=== PATIENT | female | born 1935 | race Caucasian/White ===

== ENCOUNTER → 2017-03-05 | Outpatient (CLI) | payer MEDICARE ==
--- NOTE | 2017-03-05 14:45 | PCVCIMAG ---
APPROVED REPORT Study performed: 03/05/2017 13:22:27 EXAM: Comprehensive 2D, Doppler, and color-flow Echocardiogram Patient Location: Echo lab Status: routine BSA: 1.90 HR: 67 bpmBP: 128/64 mmHg Rhythm: NSR Other Information Study Quality: Adequate Indications Atrial Fibrillation Hypertension/HDD Diastolic dysfunction,Dyslipidemai 2D Dimensions LVEF(%): 66.25 (>50%) IVSd: 9.10 (7-11mm)LVOT Diam: 19.76 (18-24mm) LVDd: 35.38 mm PWd: 7.90 (7-11mm)Ascending Ao: 25.89 (22-36mm) LVDs: 22.75 (25-40mm) Left Atrium: 30.82 (27-40mm) Aortic Root: 25.81 mm LV Single Plane 4CH: 65.05 % LV Single Plane 2CH: 72.00 %Da Silva's LVEF: 68.53 % Biplane EF: 69.4 % Volumes Left Atrial Volume (Systole) Single Plane 4CH: 42.91 mLSingle Plane 2CH: 59.91 mL Biplane LA Volume: 52.00 mLLA ESV Index: 28.00 mL/m2 Aortic Valve AoV Peak Carter.: 1.77 m/s AO Peak Gr.: 15.73 mmHgLVOT Max P.56 mmHg AO Mean Gr.: 8.50 mmHgLVOT Mean P.51 mmHg AO V2 Mean: 1.41 m/sLVOT Max V: 1.09 m/s AO V2 VTI: 39.13 cmLVOT Mean V: 0.73 m/s CAPRI (VTI): 1.65 [id number] V1 VTI: 21.06 cm CAPRI Vmax: 1.89 cm2 SV (LVOT): 64.51 mL Mitral Valve E/A Ratio: 0.7 MV Decel. Time: 164.34 ms MV E Max Carter.: 0.72 m/s MV A Carter.: 1.07 m/s IVRT: 65.74 ms Pulmonary Valve PV Peak Carter.: 0.92 m/sPV Peak Gr.: 3.40 mmHg Tricuspid Valve TR Peak Carter.: 2.57 m/s TR Peak Gr.: 26.46 mmHg TV Vmax: 0.51 m/sPA Pressure: 34.00 mmHg Left Ventricle The left ventricle is normal size. There is normal LV segmental wall motion. There is normal left ventricular wall thickness. Left ventricular systolic function is normal. The left ventricular ejection fraction is within the normal range. LVEF is 65-70%. Grade I - abnormal relaxation pattern. Right Ventricle The right ventricle is normal size. The right ventricular systolic function is normal. Atria The left atrium size is normal. Right atrium is mildly dilated. Aortic Valve Aortic valve is trileaflet. Aortic valve leaflets are sclerotic with mildly decreased opening. No aortic regurgitation is present. Minimally stenotic aortic valve leaflets. Highest mean aortic valve gradient is 8.3 Peak aortic valve gradient is 14mmHg.mmHg. Mitral Valve Mitral valve leaflets open well. The anterior mitral valve leaflet has mild sclerotic changes . There is no mitral valve regurgitation noted. No evidence of mitral valve stenosis. Tricuspid Valve The tricuspid valve is normal in structure. Moderate tricuspid regurgitation with a PA pressure of 34mmHg.. Pulmonic Valve The pulmonary valve is normal in structure. There is no pulmonic valvular regurgitation. Great Vessels The aortic root is normal in size. The ascending aorta is normal in size. IVC is normal in size and collapses with >50% inspiration Pericardium There is no pericardial effusion. There is no pleural effusion. <Conclusion> Left ventricular systolic function is normal. The left ventricular ejection fraction is within the normal range. LVEF is 65-70%. Grade I - abnormal relaxation pattern. The right ventricle is normal size. The left atrium size is normal. Aortic valve is trileaflet. Aortic valve leaflets are sclerotic with mildly decreased opening. Minimally stenotic aortic valve leaflets. Highest mean aortic valve gradient is 8.3 Peak aortic valve gradient is 14mmHg.mmHg. Mitral valve leaflets open well. The anterior mitral valve leaflet has mild sclerotic changes . There is no mitral valve regurgitation noted. There is no mitral valve regurgitation noted. Moderate tricuspid regurgitation with a PA pressure of 34mmHg.. There is no pericardial effusion.
--- NOTE | 2017-03-05 17:53 | PCVCIMAG ---
APPROVED REPORT Indications Bruit Stenosis Doppler Spectral Velocity Analysis PSV / EDVPSV / EDV ECA (R) 149 / 7 cm/sECA (L) 90 / 16 cm/s dICA (R) 41 / 13 cm/sdICA (L) 53 / 13 cm/s Gregg (R) 58 / 14 cm/smICA (L) 66 / 18 cm/s pICA (R) 211 / 32 cm/spICA (L) 92 / 17 cm/s Bulb (R) 70 / 12 cm/sBulb (L) 72 / 14 cm/s dCCA (R) 58 / 12 cm/sdCCA (L) 75 / 14 cm/s mCCA (R) 61 / 14 cm/smCCA (L) 90 / 17 cm/s Vert (R) 40 / 12 cm/sVert (L) 50 / 10 cm/s ICA/CCA 3.64 ICA/CCA 1.23 Findings The right carotid bulb has moderately severe calcified plaque. The right proximal internal carotid artery shows 60-70% stenosis. The right common carotid artery shows no significant stenosis. The right external carotid artery shows <50% stenosis. The left carotid bulb has moderate calcified plaque. The left proximal internal carotid artery shows <40% stenosis. The left common carotid artery shows no significant stenosis. The left external carotid artery shows no significant stenosis. Conclusion 1. Right internal carotid artery stenosis (60-70%) 2. Left internal carotid artery stenosis (<40%) 3. Antegrade vertebral flow
== END | disposition home or self-care (01) ==
LOC: PCVCIMAG 13:08
PROVIDERS: ATTEND Internal Medicine Cardiovascular Disease
DX: I48.91 Unspecified atrial fibrillation (principal); I65.23 Occlusion and stenosis of bilateral carotid arteries; I10 Essential (primary) hypertension; E78.00 Pure hypercholesterolemia, unspecified; M19.90 Unspecified osteoarthritis, unspecified site; I07.1 Rheumatic tricuspid insufficiency; I11.9 Hypertensive heart disease without heart failure; I77.89 Other specified disorders of arteries and arterioles; Z96.652 Presence of left artificial knee joint; Z88.0 Allergy status to penicillin; Z79.899 Other long term (current) drug therapy
CPT/HCPCS: 80061; 93005; 93306; 93880; G0463

== ENCOUNTER → 2017-11-04 | Outpatient (CLI) | payer MEDICARE | END | disposition home or self-care (01) | LOC: PCVCIMAG 09:34 | DX: I65.23 Occlusion and stenosis of bilateral carotid arteries (principal); I48.0 Paroxysmal atrial fibrillation; I10 Essential (primary) hypertension; M35.3 Polymyalgia rheumatica; E78.00 Pure hypercholesterolemia, unspecified; I08.2 Rheumatic disorders of both aortic and tricuspid valves; D68.59 Other primary thrombophilia; I77.9 Disorder of arteries and arterioles, unspecified; Z79.899 Other long term (current) drug therapy; Z88.0 Allergy status to penicillin | CPT/HCPCS: 80061; 93005; 93880; G0463 ==

== ENCOUNTER → 2018-05-18 | Outpatient (CLI) | payer MEDICARE | END | disposition home or self-care (01) | LOC: PCVCCLINIC 13:35 | PROVIDERS: ATTEND Internal Medicine Cardiovascular Disease | DX: I48.0 Paroxysmal atrial fibrillation (principal); I10 Essential (primary) hypertension; I07.1 Rheumatic tricuspid insufficiency; I65.23 Occlusion and stenosis of bilateral carotid arteries; E78.00 Pure hypercholesterolemia, unspecified; E78.5 Hyperlipidemia, unspecified; Z79.899 Other long term (current) drug therapy | CPT/HCPCS: 93005; G0463 ==

== ENCOUNTER → 2018-11-03 | Outpatient (CLI) | payer MEDICARE | END | disposition home or self-care (01) | LOC: PCVCCLINIC 13:00 | PROVIDERS: ATTEND Internal Medicine Cardiovascular Disease | DX: I48.0 Paroxysmal atrial fibrillation (principal); E78.00 Pure hypercholesterolemia, unspecified; I10 Essential (primary) hypertension; R60.9 Edema, unspecified; I65.23 Occlusion and stenosis of bilateral carotid arteries | CPT/HCPCS: 36415; 80061; 93005; G0463 ==

== ENCOUNTER → 2019-06-07 | Outpatient (CLI) | payer MEDICARE ==
--- NOTE | 2019-06-07 14:14 | PCVCIMAG ---
APPROVED REPORT Laterality: Bilateral Indications Stenosis Doppler Spectral Velocity Analysis PSV / EDVPSV / EDV ECA (R) 145 / 32 cm/sECA (L) 77 / 8 cm/s dICA (R) 48 / 15 cm/sdICA (L) 52 / 13 cm/s Gregg (R) 51 / 20 cm/smICA (L) 93 / 21 cm/s pICA (R) 227 / 43 cm/spICA (L) 89 / 16 cm/s Bulb (R) 159 / 48 cm/sBulb (L) 79 / 14 cm/s dCCA (R) 56 / 14 cm/sdCCA (L) 80 / 14 cm/s mCCA (R) 55 / 9 cm/smCCA (L) 87 / 14 cm/s Vert (R) 45 / 13 cm/sVert (L) 42 / 7 cm/s ICA/CCA 4.05 ICA/CCA 1.16 Findings The right carotid bulb has severe calcified plaque. The right proximal internal carotid artery shows 70-80% stenosis. The right common carotid artery shows no significant stenosis. The right external carotid artery shows no significant stenosis. The left carotid bulb has moderate plaque. The left proximal internal carotid artery shows <40% stenosis. The left common carotid artery shows no significant stenosis. The left external carotid artery shows no significant stenosis. Conclusion 1. Right internal carotid artery stenosis (70-80%) 2. Left internal carotid artery stenosis (40%) 3. Antegrade vertebral flow In comparison with the study dated October 2017, no significant differences were identified.
--- NOTE | 2019-06-07 15:43 | PCVCIMAG ---
APPROVED REPORT Study performed: 06/07/2019 14:21:35 EXAM: Comprehensive 2D, Doppler, and color-flow Echocardiogram Patient Location: Echo lab Status: routine BSA: 1.90 HR: 61 bpmBP: 152/80 mmHg Rhythm: NSR Other Information Study Quality: Adequate Risk Factors: Cardiac Risk Factors: HTN, Hyperlipidemia Indications PAF, Edema 2D Dimensions IVSd: 9.90 (7-11mm)LVOT Diam: 21.25 (18-24mm) LVDd: 48.29 mm PWd: 9.38 (7-11mm)Ascending Ao: 31.54 (22-36mm) LVDs: 28.57 (25-40mm) Left Atrium: 38.29 (27-40mm) Aortic Root: 33.89 mm Volumes Left Atrial Volume (Systole) Single Plane 4CH: 42.62 mLSingle Plane 2CH: 66.77 mL LA ESV Index: 28.00 mL/m2 Aortic Valve AoV Peak Carter.: 2.50 m/s AO Peak Gr.: 25.03 mmHgLVOT Max P.36 mmHg AO Mean Gr.: 14.46 mmHgLVOT Mean P.27 mmHg AO V2 Mean: 1.82 m/sLVOT Max V: 0.98 m/s AO V2 VTI: 59.18 cmLVOT Mean V: 0.70 m/s CAPRI (VTI): 1.35 [id number] V1 VTI: 22.56 cm CAPRI Vmax: 1.39 cm2 SV (LVOT): 79.97 mL Mitral Valve E/A Ratio: 0.7 MV Decel. Time: 263.96 ms MV E Max Carter.: 0.71 m/s MV A Carter.: 1.07 m/s IVRT: 93.43 ms TDI E/Lateral E': 11.83E/Medial E': 11.83 Medial E' Carter.: 0.06 m/s Lateral E' Carter.: 0.06 m/s Pulmonary Valve PV Peak Gr.: 1.56 mmHg Pulmonary Vein P Vein S: 0.64 m/sP Vein A: 0.43 m/s P Vein D: 0.40 m/sP Vein A Dur.: 110.7 msec P Vein S/D Ratio: 1.60 Tricuspid Valve TR Peak Carter.: 2.29 m/s TR Peak Gr.: 21.05 mmHg Left Ventricle The left ventricle is normal size. There is normal LV segmental wall motion. There is normal left ventricular wall thickness. Left ventricular systolic function is normal. The left ventricular ejection fraction is within the normal range. LVEF is 60-65%. Grade I - abnormal relaxation pattern. Right Ventricle The right ventricle is normal size. The right ventricular systolic function is normal. Atria The left atrium size is normal. The right atrium size is normal. Aortic Valve Aortic valve leaflets are moderately thickened. No aortic regurgitation is present. Peak aortic gradient is 25mmHg. Mean gradient is 14mmhg. Calculated aortic valve area is 1.4cm2. Mitral Valve Mild sclerotic anterior mitral leaftlet. Mild mitral annular calcification. Mild mitral regurgitation. No evidence of mitral valve stenosis. Tricuspid Valve The tricuspid valve is normal in structure. Trace tricuspid regurgitation. Pulmonary artery pressure is 32mmHg. Pulmonic Valve The pulmonary valve is normal in structure. There is no pulmonic valvular regurgitation. Great Vessels The aortic root is normal in size. IVC is normal in size and collapses >50% with inspiration. Pericardium There is no pericardial effusion. <Conclusion> The left ventricle is normal size. LVEF is 60-65%. Grade I - abnormal relaxation pattern. The right ventricle is normal size. The left atrium size is normal. Aortic valve leaflets are moderately thickened. Peak aortic gradient is 25mmHg. Mean gradient is 14mmhg. Calculated aortic valve area is 1.4cm2. Mild sclerotic anterior mitral leaftlet. Mild mitral annular calcification. Mild mitral regurgitation. Trace tricuspid regurgitation. Pulmonary artery pressure is 32mmHg. The aortic root is normal in size. There is no pericardial effusion.
== END | disposition home or self-care (01) ==
LOC: PCVCIMAG 13:13
PROVIDERS: ATTEND Internal Medicine Cardiovascular Disease
DX: I65.23 Occlusion and stenosis of bilateral carotid arteries (principal); I34.0 Nonrheumatic mitral (valve) insufficiency; I48.0 Paroxysmal atrial fibrillation; I51.89 Other ill-defined heart diseases; E78.00 Pure hypercholesterolemia, unspecified; I35.0 Nonrheumatic aortic (valve) stenosis; I10 Essential (primary) hypertension; E78.5 Hyperlipidemia, unspecified; Z96.653 Presence of artificial knee joint, bilateral; Z82.49 Family history of ischemic heart disease and other diseases of the circulatory system; Z79.899 Other long term (current) drug therapy
CPT/HCPCS: 36415; 80061; 93005; 93306; 93880; G0463